=== PATIENT | female | born 1990 ===

== ENCOUNTER 2020-10-15 12:11 | Emergency (ER) | payer OTHER ==
[~2020-10-15] VITALS: Ht 157.5 cm; Wt 70.3 kg
--- NOTE | 2020-10-15 12:20 | NUR ---
YASIR. Kendell ANKLE INVERSION INJURY THIS MORNING. ER 7. AOX4, NO SOB NOTED, NO S/O ANY ACUTE DISTRESS NOTED. MAKE COMFORTABLE IN BED. WILL CONTINUE TO MONITOR
[2020-10-15] MEDS ORDERED: HYDR-3980 PO (13:05)
[2020-10-15] MEDS ORDERED: IBUP-1955 PO (13:05)
[2020-10-15] MEDS ORDERED: HYDROCODONE/APAP 5/325MG TABLET ONE (13:09)
[2020-10-15] MEDS: HYDROCODONE/APAP 5/325MG TABLET PO ONE (13:14)
[2020-10-15 13:20] VITALS: BP 124/67
--- NOTE | 2020-10-15 13:30 | NUR ---
Patient discharged to home in stable condition. Written and verbal after care instructions given. Patient verbalizes understanding of instruction.
== END 2020-10-15 13:30 | disposition home or self-care (01) ==
LOC: EDUNIT# 12:11 → ER 12:30
DX: S93.492A Sprain of other ligament of left ankle, initial encounter (principal); Z88.6 Allergy status to analgesic agent; X50.1XXA Overexertion from prolonged static or awkward postures, initial encounter; Y93.K1 Activity, walking an animal; Y92.89 Other specified places as the place of occurrence of the external cause; Y99.8 Other external cause status
CPT/HCPCS: 73610-TC